=== PATIENT | female | born 1960 | race Caucasian/White ===

== ENCOUNTER 2022-02-03 06:39 | Outpatient (CLI) | payer OTHER, SELFPAY ==
--- NOTE | ~2022-02-03 | XR_ITS ---
EXAMINATION: CT abdomen pelvis wo con, XR abdomen/kub 1V DATE: 02/03/2022 07:08 (accession [id number]), 02/03/2022 07:13 (accession [id number]) INDICATION: Right flank pain TECHNIQUE: Computed tomography (CT) of the abdomen and pelvis was performed without intravenous contr ast. The dose-length product was 1397.06 mGy-cm. Automated exposure control and iterative reconstruct ion technique were employed. KUB. COMPARISON: No prior studies for comparison. . FINDINGS: Lung bases are unremarkable. Heart size normal. No significant pleural or pericardial effus ion. No significant vascular abnormality. No lymphadenopathy. No free air or free fluid. There are surgical changes consistent with previous appendectomy. There is a left lower anterior abdo bell wall hernia containing fat. There is a fat-containing umbilical hernia. There are cholecystecto my clips. The liver, spleen, pancreas, adrenal glands are unremarkable. There are nonobstructing bila teral renal stones. There is scarring of the left kidney at the upper pole. No ureteral stones or sig nificant hydronephrosis. Bowel pattern is nonobstructive. No free air or free fluid. There is severe lumbar spondylosis with grade 1 degenerative spondylolisthesis at L4-5. KUB: Punctate bilateral renal stones are identified which are obscured by overlying bowel content. IMPRESSION: 1. Nonobstructing bilateral nephrolithiasis. Reviewed, dictated and finalized at location A. IMPRESSION: 1. Nonobstructing bilateral nephrolithiasis.
== END 2022-02-03 06:40 | disposition home or self-care (01) ==
LOC: ANHIMG 06:45
PROVIDERS: Visit Provider Nurse Practitioner Family
DX: R10.9 Unspecified abdominal pain (principal); N20.0 Calculus of kidney
CPT/HCPCS: 74018; 74176